=== PATIENT | female | born 1995 | race Caucasian/White ===

== ENCOUNTER 2016-05-03 06:27 | Emergency (ER) | payer OTHER ==
[~2016-05-03 06:27] MED LIST: AMITRIPTYLINE H50 MG PO; AMOXICILLIN875 MG PO; BACTRIM DS TABL1 TA1 PO; BACTRIM DS TABL1 TA2 PO; BENZONATATE PO; BIRTH CONTROL PILL PO; CLARITIN10 M2 PO; CLARITIN10 M3 PO; DIFLUCAN PO; FIORICET1 TAB PO; IMPLANON68 MG/IMPL; IRON1 TA1; KEFLEX500 MG PO; MACROBID100 M1 PO; NEURONTIN300 MG PO; NEURONTIN600 MG PO; NUEDEXTA 20-101 EACH PO; PYRIDIUM100 MG PO; TAMIFLU75 M1 PO; TYSABRI; ZANTAC; ZANTAC150 M1 PO; ZANTAC150 MG PO; ZOFRAN ODT PO; [UNRECOGNIZED DRUG - OTHER]
== END 2016-05-03 07:22 | disposition home or self-care (01) ==
LOC: SED 06:27
DX: J02.9 Acute pharyngitis, unspecified (principal); Z79.899 Other long term (current) drug therapy
CPT/HCPCS: 87651; 96372; 99283; J1100

== ENCOUNTER 2016-08-14 08:26 | Emergency (ER) | payer OTHER | END 2016-08-14 09:20 | disposition home or self-care (01) | LOC: SED 08:26 | DX: I87.2 Venous insufficiency (chronic) (peripheral) (principal); L03.116 Cellulitis of left lower limb; L03.115 Cellulitis of right lower limb; Z79.899 Other long term (current) drug therapy | CPT/HCPCS: 99282 ==